=== PATIENT | female | born 1980 | race Caucasian/White ===

== ENCOUNTER → 2017-04-01 | Outpatient (REF) ==
[~2017-04-01] MED LIST: DHA PO; NORCO 325 MG-101 TAB PO; NORCO 325 MG-7.1 TAB PO; ONE DAILY1 TA1 PO; PERCOCET 325 MG1 TA2 PO; ROXICODONE 55 MG/TAB PO
== END ==
LOC: WSOH 15:45
DX: Z02.89 Encounter for other administrative examinations (principal)

== ENCOUNTER → 2017-06-12 | Outpatient (REF) | LOC: WSOH 16:15 | DX: Z02.89 Encounter for other administrative examinations (principal) ==

== ENCOUNTER 2019-08-19 18:34 | Outpatient (CLI) | payer SELFPAY ==
[~2019-08-19] VITALS: Ht 165.1 cm; Wt 93.2 kg
--- NOTE | 2019-08-19 18:15 | NUR ---
PT TO UNIT WITH COMPLAINTS OF VAGINAL BLEEDING WITH CLOTS. PT TO UNIT AMBULATORY AT 33.2 WEEKS, G4L2. ORIENTED TO ROOM, EFMX2, VS OBTAINED.
[2019-08-19 18:45] VITALS: BP 134/75; PULSE 85; TEMP 98.3
[2019-08-19 19:00] VITALS: BP 150/81; PULSE 90; TEMP 98.3
--- NOTE | 2019-08-19 19:08 | NUR ---
DR. NIETO IN ROOM TO EVALUATE. NO VAGINAL BLEEDING VISABLE AT THIS TIME. PT STATES THAT AT APPROXIMATELY 1745 THIS EVENING SHE WOKE UP FROM A NAP AND FELT A GUSH, UNDERWEAR WERE SATURATED AND A SPOT NOTED ON THE BED SHEETS. PT STATES SHE WENT TO THE BATHROOM AND AND A HALF DOLLAR SIZED CLOT CAME OUT AND SHE SAW BRIGHT RED BLOOD DRIPPING INTO THE TOILET. PT HAD A PREVIA BUT HAS NOW IMPROVED TO LOW LYING PLACENTA. DR. NIETO PERFORMS SVE, , SMALL AMOUNT OF BROWN BLOOD NOTED TO DR NIETO'S GLOVE. DR NIETO UNSURE IF SROM HAS OCCURRED. AMNISURE AND BETAMETHASONE ORDERED AT THIS TIME.
[2019-08-19 19:15] VITALS: BP 112/70; PULSE 86
--- NOTE | 2019-08-19 19:16 | NUR ---
MONITORING DC'D PER DR. NIETO.
--- NOTE | 2019-08-19 20:06 | NUR ---
MONITORING RESUMED FOLLOWING POSITIVE AMNISURE RESULTS. DR. NIETO IN ROOM TO DISCUSS TRANSFER TO [facility] DUE TO SROM AT 33.2 WEEKS. QUESTIONS ENCOURAGED AND ANSWERED, PT VERBALIZED UNDERSTANDING.
[2019-08-19 20:30] VITALS: BP 131/93; PULSE 110
--- NOTE | 2019-08-19 20:30 | NUR ---
LOADING DOSE OF MAGNESIUM STARTED PER DR. NIETO AT 2024. FOLLOWING DR NIETO CALLING [facility] IN [place] LOADING DOSE OF MAGNESIUM WAS DC'D PER THE RECEIVING DOCTOR'S REQUEST. MAGNESIUM STOPPED AT 2029.
[2019-08-19 21:00] VITALS: BP 104/58; PULSE 90
[2019-08-19 21:26] VITALS: BP 126/82; PULSE 93
--- NOTE | 2019-08-19 21:30 | NUR ---
EMS HERE FOR TRANSPORT TO [facility]. ZITHROMAX IV AND LR CONTINUES TO RUN. PT TO STRETCHER. OFF UNIT WITH EMS AT 2130.
[2019-08-20] MEDS ORDERED: SYNTHROID 0.0.025 MG PO (00:06)
== END 2019-08-19 21:30 | disposition short-term general hospital (02) ==
LOC: LDRO 18:34
DX: O46.93 Antepartum hemorrhage, unspecified, third trimester (principal); Z3A.33 33 weeks gestation of pregnancy
CPT/HCPCS: J0290; J0456; J0702; J3475; J7050; J7120

== ENCOUNTER 2019-08-24 11:03 | Outpatient (CLI) | payer OTHER ==
[~2019-08-24] VITALS: Ht 165.1 cm; Wt 91.4 kg
[~2019-08-24 11:03] MED LIST changes: +SYNTHROID 0.0.025 MG PO
--- NOTE | 2019-08-24 11:15 | NUR ---
Patient arrives ambulatory with spouse with concerns of vaginal bleeding this morning. Patient is a G4L2 at 34.0 weeks gestation. Patient was recently shipped to [facility] on for SROM. Patient states she was kept there and discharged yesterday after two negative Amnisure results. Patient states she had a moderate amount of bloody mucus noted on pad last night, and then this morning had "a gush of bleeding". Patient shows RN photo of pad from this morning, pad noted to be saturated entirely in length with light red/pink fluid. Patient states that after this initial bleeding episode she has not noticed any more bleeding. Patient denies clear fluid/leaking and denies contractions or cramping. Reports normal movement. Patient changes into gown, EFM explained and placed. VSS. Prior orders called to unit for Amnisure per . 1120- Amniotrace performed, negative. No blood noted on test. Current peripad does not have any blood noted. 1125- Amnisure performed per order and protocol. Sent to lab. 1135- notified and updated on patient. Reviewed patient history and complaint from this morning, reviewed observations on pad from photo. Reviewed FHR strip and toco. Requested orders for SVE as patient has low lying placenta noted in records. Orders for SVE recieved and update physician when Amnisure is resulted. Patient udpated on plan of care. SVE unchanged from last exam. Repositioned WL and updated on plan of care. Patient denies need.
[2019-08-24 11:30] VITALS: BP 119/79; PULSE 90; TEMP 97.7
[2019-08-24 11:40] VITALS: BP 119/79; PULSE 90; TEMP 97.7
--- NOTE | 2019-08-24 12:25 | NUR ---
Patient updated on plan of care after discussing Amnisure results and physician orders. No bleeding noted on current peripad. Patient continues to deny contractions or concerns. Water given per orders to orally hydrate and will monitor over another hour.
--- NOTE | 2019-08-24 13:19 | NUR ---
Reactive FHR strip, no contractions noted. Patient denies contractions or bleeding. Taken off EFM per order.
--- NOTE | 2019-08-24 13:25 | NUR ---
Labor precautions and kick counts reviewed. Patient encouraged to rest and orally hydrate. Reviewed importance of returning with noted bleeding or leaking of fluid. Patient denies questions and agrees. Has follow up appt tomorrow with . Leaves ambulatory at this time.
== END 2019-08-24 13:25 | disposition home or self-care (01) ==
LOC: LDRO 11:03
DX: O46.93 Antepartum hemorrhage, unspecified, third trimester (principal); Z3A.34 34 weeks gestation of pregnancy

== ENCOUNTER 2019-09-06 03:31 | Inpatient (IN) | payer OTHER ==
[~2019-09-06] VITALS: Ht 165.1 cm; Wt 91.4 kg
[2019-09-06] VITALS (29 sets, daily range): BP systolic 58–131; BP diastolic 37–98; PULSE 67–127; TEMP 97.6–98.4
[2019-09-06 04:32] LABS: BASO % 0.3 % (0.0-2.0); EOS # 0.1 (0.0-0.7); EOS % 1.2 % (0-4.0); GRAN # 5.7 (1.4-6.5); GRAN % 63.1 % (42.2-75.2); HEMATOCRIT 36.8 % (37.0-47.0); HEMOGLOBIN 12.3 g/dl (12.5-16.0); LYMPH # 2.3 (1.2-3.4); LYMPH % 25.5 % (20.0-51.0); MEAN CELL VOLUME 90 fl (80.0-100.0); MEAN CORPUSCULAR HEMOGLOBIN 30 pg (27.0-31.0); MEAN CORPUSCULAR HGB CONC 33 g/dl (33.0-37.0); MEAN PLATELET VOLUME 9.6 fl (7.4-10.4); MONO # 0.8 (0.1-0.6); MONO % 8.7 % (1.7-9.3); PLATELET COUNT 255 K/mm3 (130-400); RED BLOOD COUNT 4.11 M/mm3 (4.10-5.30); REDCELL DISTRIBUTION WIDTH-CV 13.7 % (11.5-14.5)
--- NOTE | 2019-09-06 06:00 | NUR ---
0600- PATIENT'S ISSA PAD/CHUX CHECKED AT THIS TIME FOR VAGINAL BLEEDING. NO VAGINAL BLEEDING NOTED ON UNDER CHUX PAD ON PATIENT'S BED. PATIENT C/O MILD LOWER ABDOMINAL CRAMPING, RATING PAIN A 2 ON A PAIN SCALE OF 0-10.
--- NOTE | 2019-09-06 11:10 | NUR ---
Dr. Almendarez consulted with [facility] in [place], [place]. Decision made for delivery. Pt updated on POC. Prepped for delivery.
[2019-09-06 15:52] LABS: BASO % 0.2 % (0.0-2.0); EOS % 0.1 % (0-4.0); GRAN # 13.5 (1.4-6.5); GRAN % 85.5 % (42.2-75.2); HEMATOCRIT 33.1 % (37.0-47.0); HEMOGLOBIN 10.9 g/dl (12.5-16.0); LYMPH # 1.4 (1.2-3.4); LYMPH % 8.7 % (20.0-51.0); MEAN CELL VOLUME 91 fl (80.0-100.0); MEAN CORPUSCULAR HEMOGLOBIN 30 pg (27.0-31.0); MEAN CORPUSCULAR HGB CONC 33 g/dl (33.0-37.0); MEAN PLATELET VOLUME 9.9 fl (7.4-10.4); MONO # 0.8 (0.1-0.6); MONO % 4.7 % (1.7-9.3); PLATELET COUNT 230 K/mm3 (130-400); RED BLOOD COUNT 3.62 M/mm3 (4.10-5.30); REDCELL DISTRIBUTION WIDTH-CV 13.6 % (11.5-14.5)
[2019-09-07 03:25] VITALS: BP 117/77; PULSE 79; TEMP 97.8
[2019-09-07 07:15] VITALS: BP 104/60; PULSE 82; TEMP 97.6
[2019-09-07] MEDS ORDERED: IBU600 MG PO (10:20)
[2019-09-07] MEDS ORDERED: PERCOCET 325 MG1 TA2 PO (10:21)
[2019-09-07 11:22] LABS: BASO % 0.2 % (0.0-2.0); EOS # 0.1 (0.0-0.7); EOS % 0.7 % (0-4.0); GRAN # 7.1 (1.4-6.5); GRAN % 75.6 % (42.2-75.2); LYMPH # 1.5 (1.2-3.4); LYMPH % 15.4 % (20.0-51.0); MEAN CELL VOLUME 91 fl (80.0-100.0); MEAN CORPUSCULAR HGB CONC 33 g/dl (33.0-37.0); MEAN PLATELET VOLUME 9.8 fl (7.4-10.4); MONO # 0.7 (0.1-0.6); MONO % 7.4 % (1.7-9.3); PLATELET COUNT 204 K/mm3 (130-400); RED BLOOD COUNT 3.18 M/mm3 (4.10-5.30); REDCELL DISTRIBUTION WIDTH-CV 13.8 % (11.5-14.5)
[2019-09-07 11:23] LABS: HEMATOCRIT 28.9 % (37.0-47.0); HEMOGLOBIN 9.6 g/dl (12.5-16.0); MEAN CORPUSCULAR HEMOGLOBIN 30 pg (27.0-31.0)
[2019-09-07 13:05] VITALS: BP 99/68; PULSE 88; TEMP 97.7
[2019-09-07 17:10] VITALS: BP 111/74; PULSE 84; TEMP 97.7
[2019-09-07 19:10] VITALS: BP 111/71; PULSE 85; TEMP 98.3
[2019-09-08 07:30] VITALS: BP 106/65; PULSE 82; TEMP 97.9
--- NOTE | 2019-09-08 07:30 | NUR ---
Rests in bed, alert. 0740 Ibuprofen 600 mg, percocet 5/325 mg one given per request and as ordered. Denies any other needs at this time.
--- NOTE | 2019-09-08 10:30 | NUR ---
Discharge instructions given, verbalizes understanding.
== END 2019-09-08 10:50 | disposition home or self-care (01) | DRG 788 ==
LOC: LDRO 03:31 → OB 12:00
PROVIDERS: Obstetrics & Gynecology; ADMIT Obstetrics & Gynecology
PROC: 10D00Z1 Extraction of Products of Conception, Low, Open Approach (ICD-10-PCS; principal; 2019-09-06)
DX: O44.13 Complete placenta previa with hemorrhage, third trimester (principal); O99.284 Endocrine, nutritional and metabolic diseases complicating childbirth; E03.9 Hypothyroidism, unspecified; Z3A.35 35 weeks gestation of pregnancy; Z37.0 Single live birth; Z23 Encounter for immunization
CPT/HCPCS: J0690; J1885; J2405; J2590; J2791; J3010; J7120

== ENCOUNTER → 2019-09-14 | Outpatient (CLI) | payer OTHER ==
[~2019-09-14] MED LIST changes: +IBU600 MG PO
--- NOTE | 2019-09-14 12:38 | NUR ---
Pt, Mercedes Lester, presents to walk in clinic with 8 day old baby girl, Sheila Lester, for a evaluation and weight check. Sheila was born on [birth year], she was 36 weeks gestation by dates and 34 weeks gestation on exam. wt: 6#2.8oz (2800 gms) DC wt 09/08/19: 5#15oz 09/10/19 wt [facility] appt: 5#11oz Today's weight: 5#13.1oz (2638 gms), for a 5% loss from and a gain of 2oz over 4 days. Pt reports Sheila eats an average of every 2 hours, taking an average of 60ml of EBM. Pt cannot get her to drink more per session to try spacing feedings out a little. Pt offers the breast 3-4 times daily. Output is 6+ voids and 4+ yellow seedy stools per day. Pt pumps q feeding collecting a minimum of 160 ml up to 240 ml. Pt is coached on baby's alignment to breast and how to get Sheila to open wider. Once latched on the left breast she remains for about 15 min. and has a gain of 34gms (1.1oz) per post feed weight. Because of slow weight gain Dr. Lane was consulted about fortifying EBM. Orders received to fortify EBM to 22 calories per ounce. Pt provided mixing instructions. POC: Fortify EBM as directed, continue with feeding times and amounts. May offer breast x2 daily and supplement 1oz fortified EBM after. Continue pumping. F/U: Dr. Crowell or Dr. Lane on Friday. Anticipate at clinic next week as well. Pt verbalizes understanding, questions invited and answered.
== END ==
LOC: LAC 11:08
DX: Z39.1 Encounter for care and examination of lactating mother (principal)

== ENCOUNTER → 2019-09-21 | Outpatient (CLI) | payer OTHER ==
--- NOTE | 2019-09-21 14:26 | NUR ---
Pt, Mercedes Lester, presents to walk-in clinic with 2 week old baby girl, Sheila Lester, for a weight check. Sheila was born on [birth year] and weighed 6# 2.8oz. At clinic one week ago she weighed 5# 13.1oz. Pt was advised per Dr. Lane to fortify EBM to 22 calories per ounce. Instructions were provided. Today Sheila weighs 6#8.9oz (2972 gms), for a gain of 11.8oz. Pt advised to continue feeding plan until Sheila is seen next week by Dr. Crowell in clinic. Anticipate evaluation at walk-in clinic next week. Questions invited and answered.
== END ==
LOC: LDRO 14:21
DX: Z39.1 Encounter for care and examination of lactating mother (principal); Z71.89 Other specified counseling